=== PATIENT | male | born 1940 | race Caucasian/White ===

== ENCOUNTER → 2019-10-27 10:17 | Outpatient (BNVA) | payer MEDICARE, SELFPAY | PROVIDERS: Family Provider Family Medicine; PCP Plastic Surgery; Visit Provider Urology | DX: C67.9 Malignant neoplasm of bladder, unspecified (principal); C61 Malignant neoplasm of prostate; C67.4 Malignant neoplasm of posterior wall of bladder | CPT/HCPCS: 81001; 87086 ==

== ENCOUNTER 2019-10-31 07:33 | Emergency (ER) | payer MEDICARE, SELFPAY ==
[2019-10-31 07:38] VITALS: BP 130/62; PULSE 58; RESP 20; TEMP 36.4; O2SAT 96; BMI 27.8
--- NOTE | 2019-10-31 07:39 | ED_ITS ---
Entered by Deepa Dunn, acting as scribe for Haris Martinez DO HPI - Chest Pain General: Chief Complaint: Chest Pain Stated Complaint: CP Time Seen by Provider: 10/31/19 07:40 Source: patient and EMS Mode of arrival: EMS Limitations: no limitations History of Present Illness: HPI narrative: 78 yo male presents with chest pressure. pt states this started 1 hour ago. pt states the pain came on with rest. pt states he has a history of cardiac issues. pt states nothing makes this better or worse. Pain radiates into his back. Pain is intermittent while in the emergency room. He reports initially began his chest then radiated down to the epigastrium and then actually moved down into the right lower quadrant. He is not had any vomiting or diarrhea with it he is not particularly been short of breath or had any diaphoresis. There is no radiation into the neck or the arm at this point. No recent long travel or flights car rides etc. no swelling in the legs. Denies fever sweats or chills or productive cough. complaint: chest pain Onset (ago): hour(s) (1 hour ago) Timing of current episode: constant and still present Prior episodes: No Onset: during rest Pain location: substernal and other (throat) Pain radiation: none Severity: moderate Quality: tightness Relieving factors: nothing Exacerbating factors: nothing Associated symptoms: Reports abdominal pain and other; Deny dyspnea, fever(s), nausea or vomiting Treatment prior to arrival: other (RUQ) Review of Systems General: Reports: 10 or more systems reviewed and unremarkable except in HPI and below Const: Denies: fever, chills, body aches, change in appetite, fatigue or malaise ENMT: Denies: throat pain, ear pain, nasal discharge or nasal congestion Card: Reports: chest pain Resp: Denies: shortness of breath, productive cough or non-productive cough GI: Reports: abdominal pain; Denies: nausea, vomiting, vomiting blood, coffee grounds in vomit, diarrhea, constipation, bloating, blood in stool or black tarry stool : Denies: flank pain, painful urination, urinary frequency or urinary urgency Skin/Breast: Denies: rash or itching PFS ED PFSH: Social History Smoking and tobacco status: never smoked Alcohol intake: never Marital status: Current occupational status: retired History of recent travel: No Physical Exam Const: COMMON NORMALS: no apparent distress GENERAL APPEARANCE: cooperative and comfortable ORIENTATION/CONSCIOUSNESS: Yes awake, Yes oriented to person, Yes oriented to place and Yes oriented to time HENMT: COMMON NORMALS: normocephalic, head/scalp atraumatic, hearing grossly n ormal bilaterally, external ears normal, EAC's normal, TM's normal bilaterally, nasal mucous membranes and turbinates normal, moist oral mucous membranes and oropharynx normal HEAD & SCALP: normocephalic and atraumatic NOSE: nasal mucous membranes and turbinates normal EXTERNAL EAR: Yes external ears normal EXTERNAL AUDITORY CANAL: EAC's normal TYMPANIC MEMBRANE: TM's normal bilaterally Eye: COMMON NORMALS: PERRL, EOMs intact bilaterally, conjunctivae normal and no scleral icterus CONJUNCTIVA: Yes conjunctivae normal PUPIL: Yes PERRL Neck/C-Spine: COMMON NORMALS: full ROM, no lymphadenopathy, supple and no JVD Lymph: LYMPHATIC: no lymphadenopathy noted and no lymphedema noted Chest: COMMONS NORMALS: palpation of chest normal Resp: COMMON NORMALS: normal respiratory effort, no retractions, no use of accessory muscles and clear to auscultation bilaterally AUSCULTATION: clear to auscultation bilaterally Cardio: COMMON NORMALS: no JVD GI: COMMON NORMALS: soft to palpation and no hepatosplenomegaly AUSCULTATION: Yes normoactive bowel sounds PALPATION: Yes soft, No tender, No guarding and Yes no hepatosplenomegaly Extremity: COMMON NORMALS: normal to inspection, normal capillary refill, no clubbing, cyanosis or edema, no calf tenderness and no pedal edema Neuro: SENSORIUM/ORIENTATION: Yes oriented to person, Yes oriented to place and Yes oriented to time Skin: COMMON NORMALS: no rashes or lesions noted GENERAL SKIN EXAM: no rashes or lesions noted Course ED course: Symptoms were varying. When patient first arrived he said the pain started in his chest radiated down to the abdomen into the right lower quadrant. He was not particularly tender on evaluation but continued to have discomfort. CT the abdomen bone and CTA of the chest for PE. This showed evidence of a dissecting aneurysm. Contacted [facility] and talk to the PA for the cardiothoracic surgeon. Advised them of the diagnosis and how we had come to find it. Did inform them had not done a thoracic angiogram of the aorta. We would be able to do 1 however it may delay transport. They agreed that it would be better not to delay transport and the test could be done in [facility] if needed after the thoracic surgeon had reviewed the CTs of the abdomen and chest done here. Discussed this with the patient as well patient transferred by air of back as time with a dissecting aneurysm is critical. Vital Signs: Vital signs: Vital Signs Temperature 97.6 F 10/31/19 07:38 Pulse Rate 60 10/31/19 12:26 Respiratory Rate 16 10/31/19 12:26 Blood Pressure 120/4 10/31/19 12:26 Pulse Oximetry 94 10/31/19 12:26 MDM - Chest Pain Lab Data: Labs: Lab Results 10/31/19 10/31/19 10/31/19 Range/Units 07:46 07:46 07:46 WBC 7.0 (4.0-10.0) 10^3/ uL RBC 4.85 (4.1-5.3) 10^6/u L Hgb 14.1 (11.7-16.6) g/dL Hct 43.8 (42.0-52.0) % MCV 90.3 (80-94) fL MCH 29.1 (28.0-34.0) pg MCHC 32.2 (30.0-36.0) g/dL RDW 14.4 (12.1-15.1) % Plt Count 224 (130-400) 10^3/c mm MPV 9.6 (7.4-10.4) fL Neut % (Auto) 60.1 % Lymph % (Auto) 27.4 % [place] % (Auto) 9.4 % Eos % (Auto) 2.4 % Baso % (Auto) 0.4 % Neut # (Auto) 4.2 (1.8-7.7) 10^3/u L Lymph # (Auto) 1.9 (0.8-4.8) 10^3/u L [place] # (Auto) 0.7 (0.2-0.9) 10^3/u L Eos # (Auto) 0.2 (0.0-0.8) 10^3/u L Baso # (Auto) 0.0 (0.0-0.1) 10^3/u L Nucleated RBC % (a uto) 0 % Nucleated RBCs # 0.0 /100WBC PT 13.90 H (10.5-13.3) SECO NDS INR 1.04 (0.8-1.2) APTT 31.6 (23.9-36.7) SECO NDS Sodium 140 (136-145) mmol/L Potassium 4.6 (3.5-5.1) mmol/L Chloride 105 (98-107) mmol/L Carbon Dioxide 25 (22-29) mmol/L Anion Gap 14.6 (5-19) BUN 28 H (8-23) mg/dL Creatinine 1.4 H (0.7-1.2) mg/dL Glucose 114 (65-115) mg/dL POC Glucose (70-110) mg/dL Calcium 9.2 (8.5-10.5) mg/dL Total Bilirubin 0.5 (0.15-1.2) mg/dL AST 16 (0-40) U/L ALT 13 (0-41) U/L Alkaline Phosphata se 63 (40-130) IU/L Troponin T Baselin e (0-15) ng/mL Troponin T 120 Min shreyas (0-15) ng/mL Delta Troponin T (0-10) ABS# Total Protein 6.7 (6.6-8.7) g/dL Albumin 4.0 (3.5-5.2) g/dL Globulin 2.7 (1.3-4.6) g/dL Urine Color (Yellow) Urine Appearance (CLEAR) Urine pH (5-7) Ur Specific Gravit y (1.005-1.030) Urine Protein (Negative) Urine Glucose (UA) (Normal) Urine Ketones (Negative) Urine Blood (Negative) Urine Nitrate (Negative) Urine Bilirubin (NEGATIVE) Urine Urobilinogen (Negative) mg/dL Ur Leukocyte Roselia ase (Negative) Urine RBC (0-2) /hpf Urine WBC (0-5) /hpf Ur Squamous Epith Cells (0-5) Calcium Oxalate Cr ystal /hpf Urine Bacteria (NONE) Urine Mucus 10/31/19 10/31/19 10/31/19 Range/Units 07:46 07:47 09:03 WBC (4.0-10.0) 10^3/ uL RBC (4.1-5.3) 10^6/u L Hgb (11.7-16.6) g/dL Hct (42.0-52.0) % MCV (80-94) fL MCH (28.0-34.0) pg MCHC (30.0-36.0) g/dL RDW (12.1-15.1) % Plt Count (130-400) 10^3/c mm MPV (7.4-10.4) fL Neut % (Auto) % Lymph % (Auto) % [place] % (Auto) % Eos % (Auto) % Baso % (Auto) % Neut # (Auto) (1.8-7.7) 10^3/u L Lymph # (Auto) (0.8-4.8) 10^3/u L [place] # (Auto) (0.2-0.9) 10^3/u L Eos # (Auto) (0.0-0.8) 10^3/u L Baso # (Auto) (0.0-0.1) 10^3/u L Nucleated RBC % (a uto) % Nucleated RBCs # /100WBC PT (10.5-13.3) SECO NDS INR (0.8-1.2) APTT (23.9-36.7) SECO NDS Sodium (136-145) mmol/L Potassium (3.5-5.1) mmol/L Chloride (98-107) mmol/L Carbon Dioxide (22-29) mmol/L Anion Gap (5-19) BUN (8-23) mg/dL Creatinine (0.7-1.2) mg/dL Glucose (65-115) mg/dL POC Glucose 101 (70-110) mg/dL Calcium (8.5-10.5) mg/dL Total Bilirubin (0.15-1.2) mg/dL AST (0-40) U/L ALT (0-41) U/L Alkaline Phosphata se (40-130) IU/L Troponin T Baselin e 15 (0-15) ng/mL Troponin T 120 Min shreyas (0-15) ng/mL Delta Troponin T (0-10) ABS# Total Protein (6.6-8.7) g/dL Albumin (3.5-5.2) g/dL Globulin (1.3-4.6) g/dL Urine Color Yellow (Yellow) Urine Appearance Hazy A (CLEAR) Urine pH 5 (5-7) Ur Specific Gravit y 1.020 (1.005-1.030) Urine Protein 1+ H (Negative) Urine Glucose (UA) Norm (Normal) Urine Ketones Negative (Negative) Urine Blood 3+ H (Negative) Urine Nitrate Negative (Negative) Urine Bilirubin 1+ H (NEGATIVE) Urine Urobilinogen Norm (Negative) mg/dL Ur Leukocyte Roselia ase Trace H (Negative) Urine RBC 50-80 H (0-2) /hpf Urine WBC 15-25 H (0-5) /hpf Ur Squamous Epith Cells Rare (0-5) Calcium Oxalate Cr ystal 0-4 H /hpf Urine Bacteria 2+ H (NONE) Urine Mucus 1+ 02/29/20 Range/Units 09:37 WBC (4.0-10.0) 10^3/ uL RBC (4.1-5.3) 10^6/u L Hgb (11.7-16.6) g/dL Hct (42.0-52.0) % MCV (80-94) fL MCH (28.0-34.0) pg MCHC (30.0-36.0) g/dL RDW (12.1-15.1) % Plt Count (130-400) 10^3/c mm MPV (7.4-10.4) fL Neut % (Auto) % Lymph % (Auto) % [place] % (Auto) % Eos % (Auto) % Baso % (Auto) % Neut # (Auto) (1.8-7.7) 10^3/u L Lymph # (Auto) (0.8-4.8) 10^3/u L [place] # (Auto) (0.2-0.9) 10^3/u L Eos # (Auto) (0.0-0.8) 10^3/u L Baso # (Auto) (0.0-0.1) 10^3/u L Nucleated RBC % (a uto) % Nucleated RBCs # /100WBC PT (10.5-13.3) SECO NDS INR (0.8-1.2) APTT (23.9-36.7) SECO NDS Sodium (136-145) mmol/L Potassium (3.5-5.1) mmol/L Chloride (98-107) mmol/L Carbon Dioxide (22-29) mmol/L Anion Gap (5-19) BUN (8-23) mg/dL Creatinine (0.7-1.2) mg/dL Glucose (65-115) mg/dL POC Glucose (70-110) mg/dL Calcium (8.5-10.5) mg/dL Total Bilirubin (0.15-1.2) mg/dL AST (0-40) U/L ALT (0-41) U/L Alkaline Phosphata se (40-130) IU/L Troponin T Baselin e (0-15) ng/mL Troponin T 120 Min shreyas 15.37 H (0-15) ng/mL Delta Troponin T 0.37 (0-10) ABS# Total Protein (6.6-8.7) g/dL Albumin (3.5-5.2) g/dL Globulin (1.3-4.6) g/dL Urine Color (Yellow) Urine Appearance (CLEAR) Urine pH (5-7) Ur Specific Gravit y (1.005-1.030) Urine Protein (Negative) Urine Glucose (UA) (Normal) Urine Ketones (Negative) Urine Blood (Negative) Urine Nitrate (Negative) Urine Bilirubin (NEGATIVE) Urine Urobilinogen (Negative) mg/dL Ur Leukocyte Roselia ase (Negative) Urine RBC (0-2) /hpf Urine WBC (0-5) /hpf Ur Squamous Epith Cells (0-5) Calcium Oxalate Cr ystal /hpf Urine Bacteria (NONE) Urine Mucus Imaging Data^: CXR: Radiologist's impression: [address] [address] XRay Report Signed Patient: Antoine Kebede #: [id number] : 3Acct#:[id number] Age/Sex: 78 / MADM Date: 10/31/19 Loc: ERRoom/Bed: Attending Dr: Ordering Provider/Ordering MD: Haris Martinez DO Date of Service: 02/29/20 Procedure(s): XR chest 1V portable [id number] Accession Number(s): [id number] Report Number: [id number] PROCEDURE INFORMATION: Exam: XR Chest, 1 View Exam date and time: 10/31/2019 8:12 AM Age: 78 years old Clinical indication: Left-sided chest pain; Additional info: Dyspnea/cough TECHNIQUE: Imaging protocol: XR of the chest Views: 1 view. COMPARISON: CR Chest 1 [place] [id number] 08/10/2019 12:32 PM FINDINGS: Lungs: There is no focal consolidation. Pleural space: There is no significant pleural effusion. There is no discernible pneumothorax. Heart/Mediastinum: No cardiomegaly. Vasculature: Atherosclerotic calcifications are present within the aortic arch. Bones/joints: Unremarkable. XR/XR chest 1V portable [id number] IMPRESSION: 1. No acute findings. 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
[2019-10-31 07:50] LABS: Glucose Point of Care 101 mg/dL (70-110)
--- NOTE | 2019-10-31 07:59 | ECG_ITS ---
Measurements Intervals [place] Rate: 65 P: 18 TX: 185 QRS: 44 QRSD: 87 T: 53 QT: 397 QTc: 414 SINUS RHYTHM WITH FREQUENT SUPRAVENTRICULAR PREMATURE COMPLEXES ABNORMAL RHYTHM ECG Compared to ECG 08/10/2019 14:09:09 No significant changes Electronically Signed On 10-31-2019 20:24:32 SERVICE LINE BUS CLEANER by Karl Ray M.D. [email or web address]
--- NOTE | 2019-10-31 08:00 | XRR_ITS ---
PROCEDURE INFORMATION: Exam: XR Chest, 1 View Exam date and time: 10/31/2019 8:12 AM Age: 78 years old Clinical indication: Left-sided chest pain; Additional info: Dyspnea/cough TECHNIQUE: Imaging protocol: XR of the chest Views: 1 view. COMPARISON: CR Chest 1 [place] [id number] 08/10/2019 12:32 PM FINDINGS: Lungs: There is no focal consolidation. Pleural space: There is no significant pleural effusion. There is no discernible pneumothorax. Heart/Mediastinum: No cardiomegaly. Vasculature: Atherosclerotic calcifications are present within the aortic arch. Bones/joints: Unremarkable. XR/XR chest 1V portable [id number] IMPRESSION: 1. No acute findings.
[2019-10-31 08:13] LABS: Basophils % 0.4 %; Eosinophils # 0.2 10^3/uL (0.0-0.8); Eosinophils % 2.4 %; Hematocrit 43.8 % (42.0-52.0); Hemoglobin 14.1 g/dL (11.7-16.6); Lymphocytes # 1.9 10^3/uL (0.8-4.8); Lymphocytes % 27.4 %; Mean Corpuscular HGB Conc 32.2 g/dL (30.0-36.0); Mean Corpuscular Hemoglobin 29.1 pg (28.0-34.0); Mean Corpuscular Volume 90.3 fL (80-94); Mean Platelet Volume 9.6 fL (7.4-10.4); Monocytes # 0.7 10^3/uL (0.2-0.9); Monocytes % 9.4 %; Neutrophils # 4.2 10^3/uL (1.8-7.7); Neutrophils % 60.1 %; Nucleated Red Blood Cells % 0 %; Platelet Count 224 10^3/cmm (130-400); Red Blood Count 4.85 10^6/uL (4.1-5.3); Red Cell Distribution Width 14.4 % (12.1-15.1)
[2019-10-31 08:16] LABS: INR 1.04 (0.8-1.2)
[2019-10-31 08:17] LABS: Partial Thromboplastin Time 31.6 SECONDS (23.9-36.7)
[2019-10-31 08:21] LABS: Alanine Aminotransferase 13 U/L (0-41); Alkaline Phosphatase 63 IU/L (40-130); Anion Gap 14.6 (5-19); Aspartate Amino Transferase 16 U/L (0-40); Blood Urea Nitrogen 28 mg/dL (8-23); Calcium 9.2 mg/dL (8.5-10.5); Carbon Dioxide 25 mmol/L (22-29); Chloride 105 mmol/L (98-107); Globulin 2.7 g/dL (1.3-4.6); Glucose 114 mg/dL (65-115); Potassium 4.6 mmol/L (3.5-5.1); Sodium 140 mmol/L (136-145); Total Bilirubin 0.5 mg/dL (0.15-1.2); Total Protein 6.7 g/dL (6.6-8.7)
[2019-10-31 08:23] LABS: Troponin(5th) Baseline 15 ng/mL (0-15)
[2019-10-31] MEDS: sodium chloride 0.9% 1,000 ML 999 ML IV (08:51)
[2019-10-31 09:05] VITALS: BP 126/64; PULSE 51; O2SAT 98
[2019-10-31 09:36] LABS: Bilirubin Urine 1+ (NEGATIVE); Blood Urine 3+ (Negative); Glucose Urine UA Norm (Normal); Ketones Urine Negative (Negative); Nitrate Urine Negative (Negative); Protein Urine 1+ (Negative); Urine Appearance Hazy (CLEAR); Urine Color Yellow (Yellow); pH Urine 5 (5-7)
[2019-10-31 09:37] LABS: Add Urine Microscopic? YES; Leukocyte Esterase Urine Trace (Negative); Urobilinogen Urine Norm (Negative)
[2019-10-31 09:46] LABS: Bacteria Urine 2+; Mucus Urine 1+; RBC Urine 50-80 /hpf (0-2); Squamous Epithelial Cell Urine RARE (0-5); WBC Urine 15-25 /hpf (0-5)
[2019-10-31 09:47] LABS: Add Urine Culture? Yes; Calcium Oxalate Crystals Urine 0-4 /hpf
[2019-10-31] MEDS: nitroglycerin 1 gm/inch oint Pkt 1 INCH TOPICAL (09:49)
[2019-10-31 09:51] VITALS: BP 122/62; PULSE 49; RESP 15; O2SAT 97
[2019-10-31 10:03] LABS: Troponin 5 2HR 15.37 ng/mL (0-15); Troponin 5 2HR Delta 0.37 ABS# (0-10)
--- NOTE | 2019-10-31 10:08 | CTR_ITS ---
PROCEDURE INFORMATION: Exam: CT Angiography Chest With Contrast Exam date and time: 10/31/2019 10:54 AM Age: 78 years old Clinical indication: Chest pain; Other: Mid chest; Prior surgery; Surgery date: 6+ months; Surgery type: Gb; Additional info: Chest pain/dyspnea TECHNIQUE: Imaging protocol: Computed tomographic angiography of the chest with intravenous contrast. 3D rendering: MIP and/or 3D reconstructed images were created by the technologist. Total DLP: 668.09 mGy-cm Radiation optimization: All CT scans at this facility use at least one of these dose optimization techniques: automated exposure control; mA and/or kV adjustment per patient size (includes targeted exams where dose is matched to clinical indication); or iterative reconstruction. Contrast material: VISI 320; Contrast volume: 95 ml; Contrast route: RT AC; COMPARISON: CR XR chest 1V portable [id number] 10/31/2019 8:01 AM FINDINGS: Pulmonary arteries: The main pulmonary artery measures up to 3.3 cm. There is a subtle filling defect within the right anterior basal segmental pulmonary artery. No other pulmonary arterial filling defects identified. Great vessels off aortic arch: Atherosclerotic calcifications are pesent within the aorta, branch and coronary vessels. Aorta: There is crescentic hyperattenuation and central displacement of atherosclerotic calcifications extending from the level of the aortic root to level of the renal arteries concerning for dissection. IVC: There is trace reflux of contrast into the IVC. Lungs: A few small calcified granuloma are noted. There is no focal consolidation. There is linear atelectasis versus scarring within the lower lobes bilaterally. Pleural space: Unremarkable. No pneumothorax. No pleural effusion. Heart: There is mild straightening of the interventricular septum. No cardiomegaly. No pericardial effusion. Mediastinum: There is a small hiatal hernia. Gallbladder and bile ducts: The gallbladder surgically absent. Spleen: There is mild splenomegaly with calcifications. Lymph nodes: Partially calcified mediastinal lymph nodes are noted. No evidence of lymphadenopathy by CT size criteria. Bones/joints: There are mild multilevel degenerative changes of the spine. There are no acute osseous findings. Soft tissues: Unremarkable. CT/CT angio chest PE protcl [id number] IMPRESSION: 1. Subtle filling defect within the right basal segmental pulmonary artery concerning for acute pulmonary embolism. No other pulmonary arterial filling defects identified. 2. The main pulmonary artery measures up to 3.3 cm and can be associated with pulmonary arterial hypertension. 3. Findings which can be seen with right heart strain. 4. Crescentic hyperattenuation extending along the ascending thoracic aorta to the level of the renal arteries concerning for dissection. If available, correlation with prior imaging is suggested with vascular surgical consultation and aortic CT angiogram as warranted. THIS REPORT CONTAINS FINDINGS THAT MAY BE CRITICAL TO PATIENT CARE. The findings were verbally communicated via telephone conference with Haris Martinez at 12:07 PM DEVELOPMENT SPECIALIST on 10/31/2019. The findings were acknowledged and understood. Radiation Dose CTDIVOL = (mGy): DLP = 668.09 (mGy-cm)
--- NOTE | 2019-10-31 10:10 | CTR_ITS ---
PROCEDURE INFORMATION: Exam: CT Abdomen And Pelvis Without Contrast Exam date and time: 10/31/2019 10:54 AM Age: 78 years old Clinical indication: Abdominal pain; Flank; Right; Prior surgery; Surgery date: 6+ months; Surgery type: Gb; Additional info: Hematuria TECHNIQUE: Imaging protocol: Computed tomography of the abdomen and pelvis without contrast. Total DLP: 1824.99 mGy-cm Radiation optimization: All CT scans at this facility use at least one of these dose optimization techniques: automated exposure control; mA and/or kV adjustment per patient size (includes targeted exams where dose is matched to clinical indication); or iterative reconstruction. COMPARISON: CT Abdomen/Pelvis Renal [id number] 10/08/2018 8:30 AM FINDINGS: Lungs: There is linear atelectasis versus scarring within the lower lobes bilaterally. Small calcified granulomas are noted within the left lower lobe. Mediastinum: There is a small hiatal hernia. Liver: No mass. Gallbladder and bile ducts: The gallbladder surgically absent. Pancreas: No ductal dilation. Spleen: Mild unchanged splenomegaly with calcifications are noted. Subtle subcentimeter hypoattenuating region within the lateral spleen is too small to adequately characterize. Adrenals: No mass. Kidneys and ureters: There is mild bilateral perinephric stranding. There is no evidence of hydronephrosis. Subcentimeter hypodensities are too small to adequately characterize and statistically likely reflects cysts. There is a 3 mm nonobstructing calcification within the mid right kidney. There is an unchanged is simple appearing 1.6 cm cyst along the inferior right renal pole. Stomach and bowel: There is scattered colonic diverticulosis. There is no evidence of diverticulitis. Appendix: No evidence of appendicitis. Intraperitoneal space: No free air. No significant fluid collection. Vasculature: There is mural thickening and crescentic hyperattenuation along the anterior abdominal aorta extending to the level of the renal arteries which appears new from the prior examination dated 10/08/2018 and is concerning for mural thrombus versus a dissection. There is unchanged fusiform dilation of the infrarenal abdominal aorta which measures up to 2.7 cm. Aortoiliac and branch vessel atherosclerotic calcifications are noted. Valvular and coronary atherosclerotic calcifications are noted. Lymph nodes: Scattered non pathologically enlarged mesenteric and retroperitoneal lymph nodes are not significantly changed and may be reactive. Bladder: Lobulated inferior bladder contour is unchanged with mild associated stranding. Hazy lobulated calcific density within the inferior bladder has increased in size, measuring up to 1.6 cm inferiorly (image 168, series 2). Reproductive: Unremarkable as visualized. Bones/joints: There are mild multilevel degenerative changes of the spine. Compression deformity involving the T9 vertebral body is unchanged. No acute osseous findings. Soft tissues: There is a small amount of fat within the umbilicus. Other findings: There is mild perirectal wall thickening. CT/CT kidney stone [id number] IMPRESSION: 1. Interval increase in size of the hazy lobulated calcific density within the inferior bladder which may reflect a single versus multiple adjacent calcifications. There is unchanged lobulated contour of the inferior bladder with mild adjacent stranding. Correlate to exclude cystitis with urological consultation and direct visualization as warranted. 2. Nonobstructing 3 mm calcification within the mid right kidney. There is mild bilateral perinephric stranding without evidence of hydronephrosis. Correlate to exclude recently passed stone versus pyelonephritis. 3. Mural thickening with crescentic hyperattenuation along the anterior distal thoracic and proximal abdominal aorta to level of the renal arteries, which is new from 10/08/2018 and is concerning for mural thrombus versus dissection. If available, correlation with more recent imaging is suggested with CT angiogram as warranted. 4. Additional stable findings as detailed above. Radiation Dose CTDIVOL = (mGy): DLP = 1824.99 (mGy-cm)
[2019-10-31] MEDS: morphine 4 mg/mL SDV 1 mL 2 MG IVP (10:39)
[2019-10-31] MEDS: lidocaine 2% viscous 15 ML, aluminum-mag hydrox-simethicon 30 ML, sucralfate oral liq 1 GM PO (10:39)
[2019-10-31] MEDS: iodixanol 320 mg/mL 100mL Btl IV (11:17)
[2019-10-31] MEDS: nitroglycerin drip 50 MG/250 ML PREMIX IV (12:03)
[2019-10-31 12:11] VITALS: BP 130/64; PULSE 56; RESP 15; O2SAT 96
--- NOTE | 2019-10-31 12:12 | PC.NURSE ---
removed NTP when NTG drip started per verbal order of Dr. Martinez
--- NOTE | 2019-10-31 12:12 | PC.NURSE ---
BP 130/64-NTG drip titrated to 25mcg/min
[2019-10-31] MEDS: morphine 4 mg/mL SDV 1 mL IVP (12:16)
--- NOTE | 2019-10-31 12:18 | PC.NURSE ---
AIR EVAC in room with Pt now
[2019-10-31 12:26] VITALS: BP 120/4; PULSE 60; RESP 16; O2SAT 94
--- NOTE | 2019-10-31 13:59 | ECG_ITS ---
Measurements Intervals [place] Rate: 53 P: 15 [place]: 183 QRS: 37 QRSD: 81 T: 26 QT: 402 QTc: 380 SINUS BRADYCARDIA Compared to ECG 08/10/2019 14:09:09 Sinus rhythm no longer present Electronically Signed On 10-31-2019 20:35:35 WELL SERVICE PUMP EQUIPMENT OPERATOR by Karl Ray M.D. [email or web address]
== END 2019-10-31 12:30 | disposition short-term general hospital (02) ==
PROVIDERS: Emergency Provider Family Medicine; Family Provider Family Medicine; PCP Plastic Surgery
DX: I71.01 Dissection of thoracic aorta (principal)
CPT/HCPCS: 36415; 36416; 71045; 71275; 74176; 80053; 81001; 82962; 84484; 85025; 85610; 85730; 87086; 93005; 96365; 96366; 96367; 96375; 96376; 99283; 99285; J2270; J3490; J7030; Q9967